=== PATIENT | male | born 1955 | race Caucasian/White ===

== ENCOUNTER 2019-07-08 13:15 | Outpatient (CLI) | payer MEDICARE, MEDICAID | END 2019-07-08 23:59 | disposition home or self-care (01) | LOC: VASLAB 13:15 | PROVIDERS: ATTEND Surgery Vascular Surgery | DX: L97.822 Non-pressure chronic ulcer of other part of left lower leg with fat layer exposed (principal); M79.89 Other specified soft tissue disorders; Z79.01 Long term (current) use of anticoagulants; Z79.899 Other long term (current) drug therapy; Z86.718 Personal history of other venous thrombosis and embolism | CPT/HCPCS: A6207 ×2; G0463 ==

== ENCOUNTER 2019-08-06 14:30 | Outpatient (CLI) | payer MEDICARE, OTHER | END 2019-08-06 23:59 | disposition home or self-care (01) | LOC: WOU 14:30 | PROVIDERS: ATTEND Podiatrist Foot & Ankle Surgery | DX: I87.312 Chronic venous hypertension (idiopathic) with ulcer of left lower extremity (principal); L97.822 Non-pressure chronic ulcer of other part of left lower leg with fat layer exposed; Z86.718 Personal history of other venous thrombosis and embolism; I87.2 Venous insufficiency (chronic) (peripheral) | CPT/HCPCS: 11042; A6452 ==